=== PATIENT | female | born 1960 | race African-American/Black ===

== ENCOUNTER 2017-05-16 07:19 | Emergency (ER) | payer BC, OTHER ==
[2017-05-16 07:28] VITALS: BP 120/69; PULSE 74; TEMP 98.2; BMI 22.8
--- NOTE | 2017-05-16 08:06 | PDOC ---
History of Present Illness - General Chief Complaint: Injury Stated Complaint: FINGER INJURY Time Seen by Provider: 05/16/17 08:06 Past History - Past Medical History Allergies/Adverse Reactions: Allergies Allergy/AdvReac Type Severity Reaction Status Date / Time No Known Allergies Allergy Verified 05/16/17 07:26 COPD: No HTN: Yes - Surgical History Cholecystectomy: Yes - Suicide/Smoking/Psychosocial Hx Smoking History: Never smoked Have you smoked in the past 12 months: No Information on smoking cessation initiated: No Hx Alcohol Use: No Drug/Substance Use Hx: No Substance Use Type: None *Physical Exam - Vital Signs Last Vital Signs Temp Pulse Resp BP Pulse Ox 98.2 F 74 18 120/69 100 05/16/17 07:24 05/16/17 07:24 05/16/17 07:24 05/16/17 07:24 05/16/17 07:24 *DC/Admit/Observation/Transfer - Referrals Referrals: Torres Parkinson MD, MD [Primary Care Provider] - - Patient Instructions - Post Discharge Activity
--- NOTE | 2017-05-16 08:22 | PDOC ---
History of Present Illness - General Chief Complaint: Injury Stated Complaint: FINGER INJURY Time Seen by Provider: 05/16/17 08:06 History Source: Patient Exam Limitations: No Limitations - History of Present Illness Initial Comments: 05/16/17 08:18 56 year old female presents to the ED with complaints of left third finger pain. Patient states was opening the primary substance abuse counselor yesterday when it bent backwards causing slight discomfort. Patient states awoke this morning with increasing tenderness to the left third finger along with difficulty bending it. Patient denies previous injury to the affected area, sensory changes distal of injury, or radiation of pain. Timing/Duration: 24 hours Severity: mild Associated Symptoms: reports: denies symptoms Past History - Travel Traveled outside of the country in the last 30 days: No - Past Medical History Allergies/Adverse Reactions: Allergies Allergy/AdvReac Type Severity Reaction Status Date / Time No Known Allergies Allergy Verified 05/16/17 07:26 COPD: No HTN: Yes - Surgical History Cholecystectomy: Yes - Suicide/Smoking/Psychosocial Hx Smoking History: Never smoked Have you smoked in the past 12 months: No Information on smoking cessation initiated: No Hx Alcohol Use: No Drug/Substance Use Hx: No Substance Use Type: None Patient Lives Alone: No Lives with/in: spouse/SO Review of Systems - Review of Systems Able to Perform ROS?: No Constitutional: No: Symptoms Reported Musculoskeletal: Yes: Joint Pain, Joint Swelling Hematologic/Lymphatic: No: Symptoms Reported *Physical Exam - Vital Signs Last Vital Signs Temp Pulse Resp BP Pulse Ox 98.2 F 74 18 120/69 100 05/16/17 07:24 05/16/17 07:24 05/16/17 07:24 05/16/17 07:24 05/16/17 07:24 - Physical Exam General Appearance: Yes: Nourished, Appropriately Dressed. No: Apparent Distress Extremity: positive: Normal Capillary Refill, Tender (Over left third PIP joint along with mild edema and limited range of motion with flexion. No crepitus no deformity) Integumentary: positive: Ecchymosis (mild over left third PIP joint) Neurologic: positive: Normal Mood/Affect, Motor Strength 5/5 (ambulatory) ED Treatment Course - RADIOLOGY Radiology Studies Ordered: Category Date Time Status FINGER(S) LEFT [RAD] Stat Radiology 05/16/17 08:09 Taken Medical Decision Making - Medical Decision Making 05/16/17 08:21 Patient here for evaluation of left third finger injury. Patient on exam with edema and limited range of motion at the PIP joint concerning for fracture versus sprain. Patient ordered for x-ray. Patient offered Motrin or Tylenol but states does not need anything presently. 05/16/17 08:24 X-ray negative for fracture. Patient placed in metal finger splint for support which I recommend she wear this for the next 5 days to allow inflammation to decrease by also applying ice and taking Motrin *DC/Admit/Observation/Transfer Diagnosis at time of Disposition: Sprain of left middle finger Qualifiers: Encounter type: initial encounter Sprain of finger site: interphalangeal joint Qualified Code(s): S63.633A - Sprain of interphalangeal joint of left middle finger, initial encounter - Discharge Dispostion Disposition: HOME - Referrals Referrals: Torres Parkinson MD, MD [Primary Care Provider] - - Patient Instructions Printed Discharge Instructions: DI for Finger Sprain Additional Instructions: Wear Finger splint for the next 5 days to allow inflammation to decrease by also applying ice x 3 days as much as you can tolerate. Please also take Motrin 600mg every 8 hours to alleviate pain and inflammation. - Post Discharge Activity
== END 2017-05-16 08:59 | disposition home or self-care (01) ==
LOC: JER 07:19
DX: S63.633A Sprain of interphalangeal joint of left middle finger, initial encounter (principal); W22.8XXA Striking against or struck by other objects, initial encounter; Y93.89 Activity, other specified; Y92.030 Kitchen in apartment as the place of occurrence of the external cause; Y99.8 Other external cause status; I10 Essential (primary) hypertension
CPT/HCPCS: 73140-TC-LT-FY; 99282-25

== ENCOUNTER 2018-03-10 21:36 | Emergency (ER) | payer OTHER ==
[2018-03-10 21:46] VITALS: BP 141/72; PULSE 86; TEMP 98.5; BMI 26.5
--- NOTE | 2018-03-10 23:25 | PDOC ---
History of Present Illness - General Chief Complaint: Headache Stated Complaint: HEADACHE Time Seen by Provider: 03/10/18 23:10 History Source: Patient - History of Present Illness Initial Comments: 03/10/18 23:22 57 year old female c/o left parietal area headache since yesterday on and off, denies , nausea, vomiting, dizziness. + chills denies no fever. + nasal congestion, denies cough, throat pain. PMHX: htn on meds Dr. Parkinson. Past History - Past Medical History Allergies/Adverse Reactions: Allergies Allergy/AdvReac Type Severity Reaction Status Date / Time No Known Allergies Allergy Verified 03/10/18 21:43 Home Medications: Ambulatory Orders Carvedilol [Coreg -] 25 mg PO BID 05/16/17 Hydralazine HCl 100 mg PO TID 05/16/17 Isosorbide Dinitrate [Isordil -] 20 mg PO TID 05/16/17 Ramipril 10 mg PO BID 05/16/17 Spironolactone [Aldactone] 25 mg PO DAILY 05/16/17 COPD: No HTN: Yes - Surgical History Cholecystectomy: Yes - Suicide/Smoking/Psychosocial Hx Smoking History: Never smoked Have you smoked in the past 12 months: No Hx Alcohol Use: No Drug/Substance Use Hx: No Substance Use Type: None Review of Systems - Review of Systems Able to Perform ROS?: Yes Is the patient limited Faroese proficient: No Constitutional: Yes: Chills. No: Symptoms Reported, See HPI, Diaphoresis, Fever , Loss of Appetite, Malaise, Night Sweats, Weakness, Weight Stable, Unintentional Wgt. Loss, Unexplained wgt Loss, Other ABD/GI: No: Symptoms Reported, See HPI, Abdominal Distended, Abd. Pain w/ defecation, Blood Streaked Bowels, Constipated, Diarrhea, Difficulty Swallowing , Nausea, Poor Appetite, Poor Fluid Intake, Rectal Bleeding, Vomiting, Indigestion, Abdominal cramping, Tarry Stools, Other Neurological: Yes: Headache. No: Symptoms reported, See HPI, Numbness, Paresthesia, Pre-Existing Deficit, Seizure, Tingling, Tremors, Weakness, Unsteady Gait, Ataxia, Dizziness, Other *Physical Exam - Vital Signs Last Vital Signs Temp Pulse Resp BP Pulse Ox 98.5 F 86 18 141/72 99 03/10/18 21:43 03/10/18 21:43 03/10/18 21:43 03/10/18 21:43 03/10/18 21:43 Moderate Sedation - Procedure Monitoring Vital Signs: Procedure Monitoring Vital Signs Temperature 98.5 F 03/10/18 21:43 Pulse Rate 86 03/10/18 21:43 Respiratory Rate 18 03/10/18 21:43 Blood Pressure 141/72 03/10/18 21:43 O2 Sat by Pulse Oximetry (%) 99 03/10/18 21:43 ED Treatment Course - LABORATORY CBC & Chemistry Diagram: 03/11/18 00:21 03/11/18 00:21 Medical Decision Making - Medical Decision Making 03/11/18 01:22 CT head: No acute intracranial hemorrhage mass effect or midline shift. Chronic lacunar infarct in the right caudate head. Mild nonspecific periventricular predominant low density throughout the deep white matter is most likely due to mild small vessel ischemic white matter disease 03/11/18 02:05 headache improved after IVF, reglan, toradol. will refer patient to neurology for outpatient follow up *DC/Admit/Observation/Transfer Diagnosis at time of Disposition: Headache Qualifiers: Headache type: unspecified Headache chronicity pattern: acute headache Intractability: not intractable Qualified Code(s): R51 - Headache - Discharge Dispostion Disposition: HOME - Referrals Referrals: Torres Parkinson MD, MD [Primary Care Provider] - Agustin Painter MD [Staff Physician] - Call tomorrow - Patient Instructions Printed Discharge Instructions: Migraine -- Adult Additional Instructions: drink plenty of fluids follow up with your doctor as soon as possible. you may take tylenol for headache. follow up with a neurology/ return to the ER if symptoms worsen. - Post Discharge Activity Forms/Work/School Notes: Back to Work
[2018-03-10] MEDS ORDERED: SODIUM CHLORIDE 500 ML IV STA (23:32)
[2018-03-11 00:32] LABS: BASO % 0.8 % (0-2.0); EOS % 2.3 % (0-4.5); HEMATOCRIT 33.3 % (32.4-45.2); HEMOGLOBIN 11.5 GM/dL (10.7-15.3); LYMPH % 42.5 % (8-40); MCH 31.5 pg (25.7-33.7); MCHC 34.4 g/dl (32.0-36.0); MEAN CELL VOLUME 91.5 fl (80-96); MEAN PLT VOLUME 8.4 fl (7.5-11.1); NEUT % 46.4 % (42.8-82.8); PLATELET COUNT 225 K/MM3 (134-434); RBC 3.64 M/mm3 (3.60-5.2); RDW 13.3 % (11.6-15.6); WHITE BLOOD COUNT 4.6 K/mm3 (4.0-10.0)
[2018-03-11] MEDS ORDERED: KETOROLAC TROMETHAMINE 30 MG/1 ML VIAL IVPUSH ONE (01:22)
[2018-03-11] MEDS ORDERED: METOCLOPRAMIDE HCL INJECTION 10 MG/2 ML VIAL IVPB ONE (01:22)
[2018-03-11 01:27] LABS: ALBUMIN 4.2 g/dl (3.4-5.0); ALK PHOS 89 U/L (45-117); ANION GAP 5 MMOL/L (8-16); BILIRUBIN,TOTAL 0.3 mg/dL (0.2-1); BLOOD UREA NITROGEN 25 mg/dL (7-18); CHLORIDE 110 mmol/L (98-107); CO2 28 mmol/L (21-32); CREATININE 1.4 mg/dL (0.55-1.3); GLUCOSE,RANDOM 102 mg/dL (74-106); POTASSIUM 3.9 mmol/L (3.5-5.1); SGOT/AST 12 U/L (15-37); SGPT/ALT 21 U/L (13-61); SODIUM 142 mmol/L (136-145); TOT PROT 7.6 g/dl (6.4-8.2)
[2018-03-11] MEDS ORDERED: KETOROLAC TROMETHAMINE 30 MG/1 ML VIAL ONE (01:28)
[2018-03-11] MEDS ORDERED: METOCLOPRAMIDE HCL INJECTION 10 MG/2 ML VIAL ONE (01:28)
== END 2018-03-11 02:34 | disposition home or self-care (01) ==
LOC: JER 21:36
PROC: 3E033GC Introduction of Other Therapeutic Substance into Peripheral Vein, Percutaneous Approach (ICD-10-PCS; principal; 2018-03-10)
PROC: 3E0333Z Introduction of Anti-inflammatory into Peripheral Vein, Percutaneous Approach (ICD-10-PCS; 2018-03-10)
PROC: 3E0337Z Introduction of Electrolytic and Water Balance Substance into Peripheral Vein, Percutaneous Approach (ICD-10-PCS; 2018-03-10)
DX: R51 Headache (principal); I10 Essential (primary) hypertension
CPT/HCPCS: 36415; 70450-TC; 80053; 85025; 99281-25; 99282-25

== ENCOUNTER 2024-04-22 05:08 | Day surgery (SDC) | payer OTHER ==
[2024-04-22] MEDS ORDERED: COCAINE HCL 4% TOPICAL SOLUTION 4 ML BOTTLE TP ONE (07:19)
[2024-04-22] MEDS ORDERED: LIDOCAINE 1%/EPI 1:100000 (20 ML MULTI DOSE VIAL) ONE (07:19)
[2024-04-22] MEDS ORDERED: ETOMIDATE 20 MG/10 ML VIAL IVPUSH ONE (08:06)
[2024-04-22] MEDS ORDERED: SUCCINYLCHOLINE CHLORIDE 200 MG/10 ML SYRINGE ONE (08:07)
[2024-04-22] MEDS ORDERED: ROCURONIUM BROMIDE 50 MG/5 ML SYRINGE ONE (08:07)
[2024-04-22] MEDS ORDERED: PROPOFOL 20 ML ONE (08:07)
[2024-04-22] MEDS ORDERED: MIDAZOLAM HCL 2 MG/2 ML SINGLE DOSE VIAL ONE (08:07)
[2024-04-22] MEDS: ceFAZolin SODIUM 1 GM VIAL IVPB ONE (08:30)
[2024-04-22] MEDS: COCAINE HCL 4% TOPICAL SOLUTION 4 ML BOTTLE TP ONE (09:10)
[2024-04-22] MEDS: LIDOCAINE 1%/EPI 1:100000 (20 ML MULTI DOSE VIAL) IJ ONE ×2 (10:00)
[2024-04-22] MEDS ORDERED: BACITRACIN ZINC 15 GM TUBE TOPICAL OINTMENT ONE (10:22)
[2024-04-22] MEDS ORDERED: SUGAMMADEX SODIUM 200 MG/2 ML VIAL ONE ×2 (10:49→10:52)
[2024-04-22] MEDS ORDERED: ACETAMINOPHEN 325 MG TABLET (FP) PO PRN (11:00)
[2024-04-22] MEDS ORDERED: LACTATED RINGERS SOLUTION 1,000 ML IV SCH (11:15)
[2024-04-22 13:25] VITALS: TEMP 97.8
[2024-04-22 14:33] VITALS: BP 145/80; PULSE 70; RESP 20
== END 2024-04-22 14:30 | disposition home or self-care (01) ==
LOC: JASU-SURG 05:08
PROVIDERS: ATTEND Otolaryngology
PROC: 09BU8ZZ Excision of Right Ethmoid Sinus, Via Natural or Artificial Opening Endoscopic (ICD-10-PCS; 2024-04-22)
PROC: 09BM8ZZ Excision of Nasal Septum, Via Natural or Artificial Opening Endoscopic (ICD-10-PCS; 2024-04-22)
PROC: 09BV8ZZ Excision of Left Ethmoid Sinus, Via Natural or Artificial Opening Endoscopic (ICD-10-PCS; principal; 2024-04-22 09:03)
DX: J34.2 Deviated nasal septum (principal); J34.3 Hypertrophy of nasal turbinates; J32.2 Chronic ethmoidal sinusitis; J32.0 Chronic maxillary sinusitis; J33.9 Nasal polyp, unspecified
CPT/HCPCS: 88304-TC; 88305-TC; 88311-TC; 94760